=== PATIENT | female | born 1995 | race Caucasian/White ===

== ENCOUNTER 2020-01-29 20:04 | Emergency (ER) | payer OTHER ==
[~2020-01-29] VITALS: Ht 165.1 cm; Wt 62.6 kg
[2020-01-29 20:05] VITALS: BP_SYST 136
--- NOTE | 2020-01-29 20:05 | NUR ---
Patient to ER bed 2 to gown for evaluation. Side rails up. Report given to TIFFANIE.
--- NOTE | 2020-01-29 20:44 | NUR ---
Dr. Watts [facility] for Pt eval
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
--- NOTE | 2020-01-29 21:18 | NUR ---
Pt taken to Radiology in stable condition
--- NOTE | 2020-01-29 21:32 | NUR ---
Pt back from Radiology, well tolerated
[2020-01-29 22:00] VITALS: BP_SYST 136
--- NOTE | 2020-01-29 22:00 | NUR ---
Patient given written and verbal discharge instructions and verbalizes understanding. ER MD discussed with patient the results and treatment provided. Patient in stable condition. ID arm band removed. Patient educated on pain management and to follow up with PMD. Pain Scale 0/10 Opportunity for questions provided and answered.
== END 2020-01-29 22:00 | disposition home or self-care (01) ==
LOC: SED 20:04
DX: M54.2 Cervicalgia (principal)
CPT/HCPCS: 72125-TC; 99284